=== PATIENT | female | born 1970 | race Caucasian/White ===

== ENCOUNTER 2024-08-02 08:41 | Outpatient (RCR) | payer BC, SELFPAY | END 2024-08-02 23:59 | disposition home or self-care (01) | LOC: ROT 08:41 | PROVIDERS: ATTENDING PHYSICIAN Orthopaedic Surgery; FAMILY PHYSICIAN Family Medicine | DX: M77.11 Lateral epicondylitis, right elbow (principal); Z73.6 Limitation of activities due to disability | CPT/HCPCS: 97010; 97166; 97535 ==

== ENCOUNTER → 2024-09-02 14:29 | Outpatient (REF) | payer BC, SELFPAY | LOC: HWRAD 14:29 | PROVIDERS: ATTENDING PHYSICIAN Student in an Organized Health Care Education/Training Program; FAMILY PHYSICIAN Family Medicine | DX: M25.50 Pain in unspecified joint (principal) | CPT/HCPCS: 72202; 73120; 73630 ==

== ENCOUNTER → 2024-11-15 15:05 | Outpatient (REF) | payer BC, SELFPAY | LOC: WDC 15:05 | PROVIDERS: ATTENDING PHYSICIAN Family Medicine; FAMILY PHYSICIAN Obstetrics & Gynecology | DX: Z12.31 Encounter for screening mammogram for malignant neoplasm of breast (principal); Z12.39 Encounter for other screening for malignant neoplasm of breast | CPT/HCPCS: 77063; 77067 ==

== ENCOUNTER 2024-11-24 15:05 | Inpatient (IN) | payer BC, SELFPAY ==
[2024-11-24] VITALS (12 sets, daily range): BP systolic 92–169; BP diastolic 61–103; BMI 40.9; BMI 38.5
[2024-11-24 06:10] LABS: % Basophils 0.5 % (0-2); % Eosinophils 1.3 % (0-6); % Immature Granulocytes 0.5 % (0-0.5); % Lymphocytes 12.7 % (20.5-51.1); % Monocytes 6.5 % (1.7-9.3); % Neutrophils 78.5 % (42.2-75.2); Absolute Eosinophils 0.1 10^3/uL (0-0.7); Absolute Lymphocytes 1.1 10^3/uL (1.2-3.4); Absolute Monocytes 0.6 10^3/uL (0.1-0.6); Absolute Neutrophils 6.9 10^3/uL (1.4-6.5); Hematocrit 41.6 % (37.0-47.0); Mean Corp Hgb Conc. 33.7 g/dL (33.0-37.0); Mean Corpuscular Hgb 32.6 pg (27.0-31.0); Mean Platelet Volume 9.4 fL (7.4-10.4); Nucleated Red Blood Cells % 0 %; Platelet Count 214 10^3/uL (130-400); Red Blood Cell Count 4.29 10^6/uL (4.20-5.40); Red Cell Dist. Width 13.1 % (11.5-14.5); White Blood Cell Count 8.8 10^3/uL (4.8-10.8)
[2024-11-24] MEDS: ZOFRAN 4 MG IV (06:22)
[2024-11-24] MEDS: BENTYL 20 MG IM (06:22)
[2024-11-24 06:23] LABS: ALT (SGPT) 177 U/L (0-35); AST (SGOT) 45 U/L (14-36); Albumin 4.3 g/dl (3.5-5.0); Alkaline Phosphatase 195 U/L (38-126); Blood Urea Nitrogen 13 mg/dl (7-17); Calcium 9.7 mg/dl (8.4-10.2); Carbon Dioxide 27 mmol/L (22-30); Chloride 107 mmol/L (98-107); Estimated Creatinine Clearance 120 ml/min; Glucose 165 mg/dl (70-99); Lipase 36 U/L (23-300); Potassium 4.7 mmol/L (3.5-5.1); Sodium 141 mmol/L (135-145); Total Bilirubin 0.9 mg/dl (0.2-1.3); Total Protein 6.8 g/dl (6.3-8.2); eGFR > 60.00
[2024-11-24] MEDS: OMNIPAQUE 50 ML PO (06:23)
--- NOTE | 2024-11-24 06:30 | ED.GENMED ---
History of Present Illness
General
Chief Complaint: Abdominal Pain
Source: patient
Exam Limitations: none
Time Seen by Provider: 11/24/24 06:08
Nursing documentation reviewed up to this point in time: agreed with
History of Present Illness
History of Present Illness:
54-year-old female past medical history of IBS, GERD presenting to the emergency department today with concerns of severe upper abdominal pain that woke her out of her sleep roughly 5 hours ago. Otherwise with a sleep without symptoms last night.
She has had associated nausea no vomiting no changes in bowel movements. Denies similar symptoms in the past. Does have a history of a gastric bypass more than 10 years ago.
Past History
Past History
ED Past Medical History: None
ED Past Surgical History: None
Social History
Tobacco: Non-smoker
Personal:
Living: with family
Review of Systems
Review of Systems
Allergies reviewed?: Yes
All Other Systems: ROS reviewed and negative except as documented in HPI and ROS
Phy Exam
Physical Exam
Physical Exam:
GENERAL: Alert , in no apparent distress
EYE: pupils equal and reactive
NECK: Supple, no significant adenopathy.
ENT: o/p clr, mmm.
CARDIAC: Regular rate and rhythm .
LUNGS: Clear breath sounds bilaterally, no acute respiratory distress, no wheezes/rales/rhonchi
ABDOMEN: Diffuse abdominal pain to palpation. No specific focal pain but does seem to have some increased discomfort to the upper abdomen. Mildly distended
NEUROLOGICAL: Alert and oriented, no focal neuro deficits
SKIN: Warm and dry, skin intact.
MUSCULOSKELETAL: No edema, well perfused.
PSYCH: Normal and appropriate interaction.
Course
Orders/Labs/Results
Orders:
Orders
11/24/24 05:43
Electrocardiogram (*1) Urgent
Reason for Study: Abdominal Pain
11/24/24 05:44
EKG- Treatment ONCE
11/24/24 05:51
Complete Blood Count/With Diff Urgent
Comprehensive Metabolic Panel Urgent
Lipase Urgent
11/24/24 06:17
CT Abd/pel W Iv And Oral Contr Urgent
Comment:
Reason For Exam: hx gastric bypass upper diffuse abd pain
Dicyclomine HCl [Bentyl] 20 mg IM NOW STA
Iohexol [Omnipaque] See Protocol PO NOW STA
Ondansetron Injectable [Zofran] 4 mg IV NOW STA
11/24/24 06:18
Urinalysis Reflex To Culture Urgent
11/24/24 07:14
Morphine Sulfate 4 mg .ROUTE .STK-MED ONE
11/24/24 07:15
HYDROmorphone [Dilaudid] 0.5 mg IV NOW STA
11/24/24 09:45
Ketorolac [Toradol] 15 mg .ROUTE .STK-MED ONE
Ketorolac [Toradol] 15 mg IV NOW STA
11/24/24 11:42
0.9% Sodium Chloride 1000 ml [Nss] 1,000 ml IV BOLUS
Abnormal Lab Results
11/24/24
05:51
MCH 32.6 H pg
(27.0-31.0)
Absolute Neuts (auto) 6.9 H 10^3/uL
(1.4-6.5)
Absolute Lymphs (auto) 1.1 L 10^3/uL
(1.2-3.4)
Neutrophils % 78.5 H %
(42.2-75.2)
Lymphocytes % 12.7 L %
(20.5-51.1)
Glucose 165 H mg/dl
(70-99)
AST 45 H U/L
(14-36)
ALT 177 H U/L
(0-35)
Alkaline Phosphatase 195 H U/L
(38-126)
11/24/24 05:51
11/24/24 05:51
Vital Signs
Initial and Last Documented VS:
Initial Vital Signs
BP
127/81
11/24/24 05:43
Last Documented Vital Signs
Temp Pulse Resp BP Pulse Ox
98.4 F 77 16 169/103 96
11/24/24 05:44 11/24/24 11:25 11/24/24 11:25 11/24/24 11:25 11/24/24 11:25
MDM/Problems Addressed
MDM/Problems Addressed:
54-year-old female presenting to the emergency department today with concerns of diffuse abdominal pain that woke her from her sleep 5 hours prior to arrival. Ongoing pain that is worsening. Associated nausea no vomiting. No fevers no chest pain
or shortness of breath. Patient was given initial dose of Bentyl and Zofran still having ongoing pain was given dose of Dilaudid. Slight improvement with this. Otherwise CT scan performed that showed possible early bowel obstruction versus ileus.
Patient admitted to medicine general surgery notified.
*Critical Care Note
Total Time (30-74mins, 75-104mins- exclusive of procedures): Not Applicable
ED Attending Note
-
Portions of this chart may have been created with voice recognition software.� Occasional wrong word or��sound alike� substitutions may have occurred due to the inherent limitations of voice recognition software.
Discharge Plan
Departure
Patient Disposition: Admit
Date of Disposition: 11/24/24
Time of Disposition: 12:18
Admit to: Med/Surg
Admit to doctor: Evert
Presentation/result/management discussed w/ accepting MD/DO: Hospitalist
Patient with high blood pressure during this ER visit?: No
Condition: Good
Covid-19: Not Applicable
Discharge Problem:
Bowel obstruction
Prescriptions:
No Action
esomeprazole magnesium [Nexium] 40 MG capsule,delayed release(DR/EC)
20 mg PO BID
Effexor
150 mg PO BID
cetirizine 10 MG tablet
10 mg PO DAILY
BuSPAR
20 mg PO TID
Patient Comments:
unknown dosage
furosemide 40 MG tablet
40 mg PO DAILY
Patient Comments:
*Alternates every other day with 20mg TABLETS.
dextroamphetamine-amphetamine [Adderall] 30 MG tablet
30 mg PO DAILY
bupropion HCl 100 MG tablet
100 mg PO DAILY
dicyclomine 20 MG tablet
20 mg PO BID
furosemide 20 MG tablet
20 mg PO DAILY
Patient Comments:
*Alternates every other day with 40mg TABLETS.
dextroamphetamine-amphetamine [Adderall] 5 MG tablet
25 mg PO HS
cholecalciferol (vitamin D3) 50,000 UNIT capsule
50,000 unit PO DAILY
Patient Comments:
*Every other day!
acetaminophen 325 MG tablet
650 mg PO Q4HPRN PRN (Reason: mild pain/SPANN/temp> 100.4F) Qty: 0 0RF
docusate sodium 100 MG capsule
100 mg PO BIDPRN PRN (Reason: constipation) Qty: 0 0RF
ergocalciferol (vitamin D2) 50,000 UNITS capsule
50,000 units PO DAILY Qty: 0 0RF
cefuroxime axetil 500 MG tablet
500 mg PO BID Qty: 4 0RF
L.acid,para-B.bifidum-S.therm [RisaQuad] 1 CAP capsule
1 cap PO BID Qty: 0 0RF
Referrals:
UNKNOWN - PT DOES,NOT KNOW [Family Provider] -
Interventions
Interventions:
*Risk Screen - Suicide Last Done: 11/24/24 05:44
*General Assessment Last Done: 11/24/24 05:44
*Neglect/Abuse Screening Last Done: 11/24/24 05:44
*ED- Fall Risk Assessment Last Done: 11/24/24 05:44
*ED COVID-19 Vaccine History Last Done: 11/24/24 05:44
PJ-Vycyog-Hhjymojtdy Assessment Last Done: 11/24/24 07:09
Discharge Date and Time
Print Language: FAROESE
[2024-11-24] MEDS: DILAUDID 0.5 MG IV (07:22)
[2024-11-24] MEDS: TORADOL 15 MG IV (09:50)
[2024-11-24] MEDS: NSS 1000 IV ×2 (11:46→16:05)
--- NOTE | 2024-11-24 14:31 | HPS.HSE ---
Family Physician
-
Family Physician: NOT KNOW UNKNOWN - PT DOES
Chief Complaint
-
Abdominal pain
History of Present Illness
54 visual female with history of multiple abdominal surgeries who presents with rather sudden of abdominal pain waking patient up from sleep. Pain was associated with nausea without emesis. Patient reports no changes in bowel habits over the last
few days. Patient reports no bulky food intake or recent travel, sick contacts. Patient multiple gastric surgeries including Janel-en-Y gastric bypass in 2002 following small bowel resection, hernia repair with mesh, hysterectomy, cholecystectomy,
appendectomy. She reports no prior episodes similar to 1 that she presents with today.
Medical History
Past Medical History
Past Medical History: Reports Other
Additional Past Medical History:
Insomnia, IBS
Past Surgical History: Reports Other (Gastric bypass Janel-en-Y, appendectomy, cholecystectomy, hysterectomy, abdominal hernia repair, small bowel resection)
Social History
Tobacco: Non-smoker
Drug: None
Personal:
Living: With Family
Employment: Employed
Family History
Family History: Not pertinent
Allergies / Home Medications
Allergies reflects when Allergies were last updated in [facility].
Home Medications with original date entered in [facility]
Allergy/Medication List:
Allergies
Allergy/AdvReac Type Severity Reaction Status Date / Time
morphine [Morphine] Allergy Unknown Verified 11/24/24 08:20
piperacillin sodium Allergy Possible Verified 11/24/24 08:20
[From Zosyn] flushing
reaction
to Zosyn
per ID
note.
tazobactam sodium Allergy Possible Verified 11/24/24 08:20
[From Zosyn] flushing
reaction
to Zosyn
per ID
note.
seasonal Allergy Unknown Uncoded 11/24/24 05:54
Home Medications
buspirone 10 mg tablet 30 mg PO BID ##0 05/10/09
cetirizine 10 mg tablet 10 mg PO HS 05/10/09
dextroamphetamine-amphetamine 30 mg tablet (Adderall) 30 mg PO DAILY 06/16/16
dicyclomine 20 mg tablet 20 mg PO BID 06/16/16
acetaminophen 325 mg tablet 650 mg (2 x 325 mg) PO Q4HPRN PRN mild pain/SPANN/temp> 100.4F ##0 06/20/16
bupropion HCl 100 mg tablet,12 hr sustained-release 100 mg PO BID 11/24/24
buspirone 10 mg tablet 30 mg PO DAILYPRN PRN anxiety 11/24/24
dextroamphetamine-amphetamine 20 mg tablet (Adderall) 20 mg PO TID 11/24/24
dextroamphetamine-amphetamine ER 25 mg 24hr capsule,extend release 25 mg PO NOON 11/24/24
duloxetine 30 mg capsule,delayed release (Cymbalta) 30 mg PO BID 11/24/24
ergocalciferol (vitamin D2) 1,250 mcg (50,000 unit) capsule 50,000 units PO WEEKLY 11/24/24
esomeprazole magnesium 20 mg capsule,delayed release (Nexium) 20 mg PO BID 11/24/24
gabapentin 100 mg capsule 100 mg PO TID 11/24/24
turmeric 400 mg capsule 2,000 mg PO BID 11/24/24
Review of Systems
-
A 12 point ROS was completed and negative except as noted: Yes
Abdomen/GI: Reports See HPI
Physical Exam
Vital Signs
Vital Signs
Temp Pulse Resp BP Pulse Ox
98.4 F 77 16 149/91 93
11/24/24 05:44 11/24/24 11:25 11/24/24 11:25 11/24/24 12:46 11/24/24 13:00
Physical Exam
General: Well Developed, Well Nourished and No Apparent Distress
HEENT: NormoCephalic, Moist mucous membranes and Atraumatic
Respiratory: Clear
Cardiac: S1/S2 and Regular Rhythm; No Murmur or Rub
GI: Soft, Non Tender, Non Distended and Normal Bowel Sounds; No Organomegaly
Rectal: Deferred by Provider
Musculoskeletal: No Clubbing, No Cyanosis and No Edema
Skin: No Rash
Neuro: Nonfocal/grossly intact
Laboratory Results
-
11/24/24 05:51
11/24/24 05:51
Laboratory Results
Total Bilirubin 0.9 mg/dl (0.2-1.3) 11/24/24 05:51
AST 45 U/L (14-36) H 11/24/24 05:51
ALT 177 U/L (0-35) H 11/24/24 05:51
Alkaline Phosphatase 195 U/L (38-126) H 11/24/24 05:51
Lipase 36 U/L (23-300) 11/24/24 05:51
Impression/Plan
-
IMPRESSION:
SBO
History of multiple abdominal surgeries.
Other conditions:*
Insomnia.
Obesity with BMI of 39
PLAN:
CT scan of the abdomen pelvis with IV and oral contrast
IMPRESSION: Multiple distended loops of small bowel about 2 separate anastomotic sites concerning for developing obstruction. Ileus cannot be excluded. Limited evaluation without oral contrast. Large amount of fecal material in small bowel loops of
the mid and lower right abdomen. New.
Moderate colonic wall thickening probably due to limited distention. Colitis cannot be excluded. New.
Previous gastric bypass surgery. Stable
Cholecystectomy. Stable
Hepatomegaly. New
Too small to characterize hypodense splenic lesion likely a small cyst or hemangioma.
SBO.
History of multiple abdominal surgeries including Janel-en-Y gastric bypass in [address] scan as above.
Abdominal examination benign only with mild distention, although with hypoactive bowel sounds
No clinical or radiologic evidence of bowel ischemia
Reports improvement since arrival to the emergency room with IV fluid bolus and analgesia.
Discussed with surgery.
Strict n.p.o.
IV hydration
Follow-up clinically and radiologically
IV PPI and antiemetics
Hold dicyclomine
Repeat CBC/BMP in the morning
Insomnia
Neuropathy pain
Continue preadmission regimen including Adderall, BuSpar and Neurontin
DVT prophylaxis Lovenox
--- NOTE | 2024-11-24 14:36 | CON.GS ---
Consultation
-
Reason for Consultation: Abdominal pain, small bowel obstruction
Medical History
-
Chief Complaint: Abdominal pain
History of Present Illness:
Patient is a 54-year-old female who presents with the acute onset of abdominal pain.
Past abdominal surgical history significant for having undergone open Janel-en-Y gastric bypass procedure with cholecystectomy in 2002. She subsequently underwent a MARLENE/appendectomy. Developed an incisional hernia and had component separation
repair. Subsequent laparotomy which was initially planned for revision of her bypass but turned into a ex lap, lysis of adhesions and small bowel resection without revision of her gastrojejunostomy or jejunojejunostomy anastomosis. She developed
another hernia and underwent operative correction in 2017. This was her last abdominal surgery.
Patient reports a history of chronic intermittent abdominal distention, fullness and early satiety on a monthly basis or so which she is attributed to dietary intake. She has not been hospitalized with any diagnosis of small bowel obstruction or
other GI conditions since her last hernia surgery in 2016. She was recently feeling fairly well. Last night had rice and beans for dinner and felt similarly distended and bloated but without abdominal pain. She awoke at 1 AM with severe onset of
colicky generalized abdominal pain and nausea but no vomiting. Last bowel movement yesterday with normal formed stool. No melena or hematochezia. She has not been able to pass significant flatus no bowel movement overnight.
She has been able to get some relief from her abdominal pain after getting pain medicine in the emergency department. Still feels tensely distended.
Past Medical History
Past Medical History: Other (Anxiety/depression, chronic fatigue, GERD, IBS, seasonal allergies.)
Past Surgical History: Other (Abdominal surgical history as outlined in the HPI)
Social History
Tobacco: Non-Smoker
Personal:
Family History
Family History: Reviewed & Not Pertinent
Allergies / Home Medications
Allergy/AdvReac Type Severity Reaction Status Date / Time
morphine [Morphine] Allergy Unknown Verified 11/24/24 08:20
piperacillin sodium Allergy Possible Verified 11/24/24 08:20
[From Zosyn] flushing
reaction
to Zosyn
per ID
note.
tazobactam sodium Allergy Possible Verified 11/24/24 08:20
[From Zosyn] flushing
reaction
to Zosyn
per ID
note.
seasonal Allergy Unknown Uncoded 11/24/24 05:54
�Medication �Instructions �Recorded �Confirmed �Type
buspirone 10 mg tablet 30 mg PO BID ##0 05/10/09 11/24/24 History
cetirizine 10 mg tablet 10 mg PO HS 05/10/09 11/24/24 History
dextroamphetamine-amphetamine 30 30 mg PO DAILY 06/16/16 11/24/24 History
mg tablet (Adderall)
dicyclomine 20 mg tablet 20 mg PO BID 06/16/16 11/24/24 History
acetaminophen 325 mg tablet 650 mg (2 x 325 mg) PO Q4HPRN PRN 06/20/16 11/24/24 Rx
mild pain/SPANN/temp> 100.4F ##0
bupropion HCl 100 mg tablet,12 hr 100 mg PO BID 11/24/24 11/24/24 History
sustained-release
buspirone 10 mg tablet 30 mg PO DAILYPRN PRN anxiety 11/24/24 11/24/24 History
dextroamphetamine-amphetamine 20 20 mg PO TID 11/24/24 11/24/24 History
mg tablet (Adderall)
dextroamphetamine-amphetamine ER 25 mg PO NOON 11/24/24 11/24/24 History
25 mg 24hr capsule,extend release
duloxetine 30 mg capsule,delayed 30 mg PO BID 11/24/24 11/24/24 History
release (Cymbalta)
ergocalciferol (vitamin D2) 1,250 50,000 units PO WEEKLY 11/24/24 11/24/24 History
mcg (50,000 unit) capsule
esomeprazole magnesium 20 mg 20 mg PO BID 11/24/24 11/24/24 History
capsule,delayed release (Nexium)
gabapentin 100 mg capsule 100 mg PO TID 11/24/24 11/24/24 History
turmeric 400 mg capsule 2,000 mg PO BID 11/24/24 11/24/24 History
Review of Systems
-
A 10 point review of systems was completed, and was negative except as per HPI.
Physical Exam
Vital Signs
Temp Pulse Resp BP Pulse Ox
98.4 F 77 16 149/91 93
11/24/24 05:44 11/24/24 11:25 11/24/24 11:25 11/24/24 12:46 11/24/24 13:00
11/23/24 11/24/24 11/25/24
06:59 06:59 06:59
Actual Weight 101.4 kg
Body Mass Index (BMI) 40.9
Lab Results
11/24/24 05:51
11/24/24 05:51
WBC 8.8 10^3/uL (4.8-10.8) 11/24/24 05:51
Hgb 14.0 g/dL (12.0-16.0) 11/24/24 05:51
Hct 41.6 % (37.0-47.0) 11/24/24 05:51
Plt Count 214 10^3/uL (130-400) 11/24/24 05:51
Abs Immat Gran (auto) 0.0 10^3/uL (0-0.05) 11/24/24 05:51
Neutrophils % 78.5 % (42.2-75.2) H 11/24/24 05:51
Physical Exam
General: Well Developed, Well Nourished and Other (Currently comfortable and participatory for history taking but acutely ill appearing)
HEENT: Normocephalic, Anicteric and Moist Mucous Membranes
Respiratory: Non Labored Respirations
Cardiac: Regular Rhythm
GI: Soft, Tender (Tenderness palpation centrally and right hemiabdomen. No rebound, no rigidity, no guarding.) and Distended (Tympanitic. No tympany on percussion)
Skin: Warm
Neuro: AO x 3
Psych: Calm
Data Reviewed
-
CT Scan: Image Personally Visualized and interpreted, Report Reviewed by me, Discussed with Physician, Discussed with Patient, Discussed with Family and Other (CT abdomen/pelvis 11/24/2024 with IV and oral contrast. There is limited oral contrast
opacifying the gastric pouch and proximal jejunum just distal to the anastomosis. There appears to be a jejunojejunal anastomosis in the region of the right lower quadrant consistent with her history of a Janel-en-)
Labs: Labs Reviewed by me, Discussed with Patient and Discussed with Family
Assessment / Plan
-
Assessment: 54-year-old female with extensive past abdominal surgical history including open Janel-en-Y gastric bypass/cholecystectomy, component separation with hernia repair, MARLENE/appendectomy, ex lap small bowel resection, open repair recurrent
incisional hernia now presenting with probable adhesive related small bowel obstruction.
CT imaging personally reviewed as outlined above. No radiographic signs of immediate bowel threat/compromise such as closed-loop obstruction, internal hernia, pneumatosis, free fluid or bowel wall thickening.
Clinically stable and without peritonitis on examination. Relief with analgesics administered in the emergency department.
Plan: Given patient's extensive past abdominal surgical history and clinical stability without signs of immediate bowel compromise or threat recommended initial attempt at medical management.
N.p.o.
IV fluid hydration
No role for NG tube decompression as she has had a Janel-en-Y gastric bypass.
Analgesics and antiemetics as needed
Repeat abdominal x-ray tomorrow to monitor for bowel gas pattern and potential progression of limited ingested oral contrast.
Discussed with hospitalist
Reviewed with patient and her boyfriend/significant other at bedside. Any other concerns or questions were confirmed to be fully addressed.
--- NOTE | 2024-11-24 16:28 | PTCARENOTE ---
Arrived to unit and ambulated to room. Call abebe within reach. Oriented to room.
--- NOTE | 2024-11-24 16:44 | CM ---
Met patient in ER. She lives in 2 level home with 18 steps up to bedroom and bathrooms. Her sons live at home when not away at college.
Her brother lives in [place].
She works, drives. NO DME, VNA, SNF.
Pharmacy [facility].
Dr. Le PCP
admitted with SBO.
PLAN HOMe no needs.
[2024-11-24] MEDS: NEURONTIN 100 MG PO ×2 (17:00→21:52)
[2024-11-24] MEDS: ADDERALL 20 MG PO (17:00)
[2024-11-24] MEDS: PROTONIX IV 40 MG IV (17:01)
[2024-11-24] MEDS: NSS (PRESERVATIVE FREE) 10 ML IV (17:01)
[2024-11-24] MEDS: LOVENOX 40 MG SC (17:45)
[2024-11-24] MEDS: CYMBALTA DELAYED RELEASE 30 MG PO (20:13)
[2024-11-24] MEDS: WELLBUTRIN SR (12 hour sustained release) 100 MG PO (20:14)
[2024-11-24] MEDS: OFIRMEV 100 IV (20:14)
[2024-11-24] MEDS: BUSPAR 30 MG PO (20:14)
[2024-11-24] MEDS: ZYRTEC 10 MG PO (22:20)
[2024-11-25] MEDS: NSS 1000 IV ×3 (02:58→22:17)
[2024-11-25 06:20] LABS: % Basophils 0.4 % (0-2); % Eosinophils 3.1 % (0-6); % Immature Granulocytes 0.2 % (0-0.5); % Lymphocytes 37.8 % (20.5-51.1); % Monocytes 12.1 % (1.7-9.3); % Neutrophils 46.4 % (42.2-75.2); Absolute Eosinophils 0.1 10^3/uL (0-0.7); Absolute Lymphocytes 1.7 10^3/uL (1.2-3.4); Absolute Monocytes 0.6 10^3/uL (0.1-0.6); Absolute Neutrophils 2.1 10^3/uL (1.4-6.5); Hematocrit 36.1 % (37.0-47.0); Hemoglobin 12.1 g/dL (12.0-16.0); Mean Corp Hgb Conc. 33.5 g/dL (33.0-37.0); Mean Corpuscular Hgb 32.4 pg (27.0-31.0); Mean Corpuscular Volume 96.8 fL (81.0-99.0); Mean Platelet Volume 9.5 fL (7.4-10.4); Nucleated Red Blood Cells % 0 %; Platelet Count 181 10^3/uL (130-400); Red Blood Cell Count 3.73 10^6/uL (4.20-5.40); Red Cell Dist. Width 13.2 % (11.5-14.5); White Blood Cell Count 4.6 10^3/uL (4.8-10.8)
[2024-11-25 06:42] LABS: Blood Urea Nitrogen 13 mg/dl (7-17); Calcium 8.4 mg/dl (8.4-10.2); Carbon Dioxide 27 mmol/L (22-30); Chloride 111 mmol/L (98-107); Estimated Creatinine Clearance 119 ml/min; Glucose 97 mg/dl (70-99); Potassium 4.1 mmol/L (3.5-5.1); Sodium 141 mmol/L (135-145); eGFR > 60.00
[2024-11-25 07:35] VITALS: BP 133/71
[2024-11-25 07:55] LABS: Urine Albumin Negative (Neg - Trace); Urine Bilirubin Negative (Negative); Urine Character Clear (Clear); Urine Color Yellow; Urine Glucose Negative (Negative); Urine Ketone Negative (Negative); Urine Leukocyte 1+ (Negative); Urine Nitrite Negative (Negative); Urine Occult Blood Negative (Negative); Urine Specific Gravity 1.015 (<1.030); Urine Urobilinogen Negative (Neg - 1+)
[2024-11-25] MEDS: NEURONTIN 100 MG PO ×3 (08:28→22:17)
[2024-11-25] MEDS: ADDERALL 30 MG PO (08:28)
[2024-11-25] MEDS: NSS (PRESERVATIVE FREE) 10 ML IV (08:28)
[2024-11-25] MEDS: WELLBUTRIN SR (12 hour sustained release) 100 MG PO ×2 (08:28→20:21)
[2024-11-25] MEDS: BUSPAR 30 MG PO ×2 (08:28→20:21)
[2024-11-25] MEDS: CYMBALTA DELAYED RELEASE 30 MG PO ×2 (08:28→20:21)
[2024-11-25] MEDS: PROTONIX IV 40 MG IV (08:29)
[2024-11-25 08:34] LABS: Urine Amorphous Seen; Urine Squamous Cell >30 /LPF (Few)
[2024-11-25 08:35] LABS: Urine Red Blood Cell 0-2 /HPF (0-2)
[2024-11-25] MEDS: OFIRMEV 100 IV (09:34)
[2024-11-25] MEDS: ADDERALL 20 MG PO ×3 (10:23→18:02)
[2024-11-25] MEDS: TORADOL 15 MG IV ×2 (10:48→20:20)
--- NOTE | 2024-11-25 11:18 | W.PN.GS2 ---
Addendum entered and electronically signed by Bro Chamberlain MD 11/25/24 11:47:
I saw and examined the patient.
The Electrician's note was reviewed and I agree with the note.
Comment: Improved, nausea better, passing flatus and had a BM, pain also resolving. Belly soft, mild ttp to left todd abdomen. OK to trial cld. Plan to go slow with diet advancement
Original Note:
Today's Communication / Plan
-
Trial of clears
Assessment / Plan
-
54-year-old female with extensive past abdominal surgical history including open Janel-en-Y gastric bypass/cholecystectomy, component separation with hernia repair, MARLENE/appendectomy, ex lap small bowel resection, open repair recurrent incisional
hernia now presenting with probable adhesive related partial small bowel obstruction.
AFVSS
No leukocytosis
Passing flatus/BM, still with left sided pain/distention
Plan:
Continue to follow for improvement with medical management
Trial of clears
IV fluid hydration
XR in AM if pain persists
Analgesics and antiemetics as needed
Subjective Data
-
Date of Service: November 25, 2024
Patient seen and examined at bedside with Dr. Chamberlain. Denies n/v. Tolerating sips of clears. Passing some gas and had a BM. Some pain remains to the left abdomen.
Objective Data
-
Intake and Output
11/24/24 11/25/24 11/26/24
06:59 06:59 06:59
Intake Total 1540 / 1540
Output Total 600 / 600
Balance 940 / 940
Intake:
Oral fluids 240 / 240
IV fluids (Total) 1200 / 1200
IV piggybacks 100 / 100
Output:
Urine, Voided 600 / 600
Other:
Number of approximated SMALL 1
amounts of urine
Number of approximated MODERATE 2
amounts of urine
Vital Signs
Temp Pulse Resp BP Pulse Ox
98.3 F 73 18 133/71 99
11/25/24 07:35 11/25/24 07:35 11/25/24 07:35 11/25/24 07:35 11/25/24 07:35
Lab Results
11/25/24 05:54
11/25/24 05:54
Calcium 8.4 mg/dl (8.4-10.2) 11/25/24 05:54
Total Bilirubin 0.9 mg/dl (0.2-1.3) 11/24/24 05:51
AST 45 U/L (14-36) H 11/24/24 05:51
ALT 177 U/L (0-35) H 11/24/24 05:51
Alkaline Phosphatase 195 U/L (38-126) H 11/24/24 05:51
Total Protein 6.8 g/dl (6.3-8.2) 11/24/24 05:51
Albumin 4.3 g/dl (3.5-5.0) 11/24/24 05:51
Physical Exam
-
NAD
ABD soft, tender to the left hemiabdomen, mild distention
--- NOTE | 2024-11-25 14:33 | W.PN.HOSP.TC ---
Today's Communication/Plan
-
Clear liquid diet
Assessment / Plan
Assessment / Plan
IMPRESSION:
SBO
History of multiple abdominal surgeries.
Other conditions:*
Insomnia.
Obesity with BMI of 39
PLAN:
CT scan of the abdomen pelvis with IV and oral contrast
IMPRESSION: Multiple distended loops of small bowel about 2 separate anastomotic sites concerning for developing obstruction. Ileus cannot be excluded. Limited evaluation without oral contrast. Large amount of fecal material in small bowel loops of
the mid and lower right abdomen. New.
Moderate colonic wall thickening probably due to limited distention. Colitis cannot be excluded. New.
Previous gastric bypass surgery. Stable
Cholecystectomy. Stable
Hepatomegaly. New
Too small to characterize hypodense splenic lesion likely a small cyst or hemangioma.
SBO.
History of multiple abdominal surgeries including Janel-en-Y gastric bypass in [address] scan as above.
Abdominal examination benign only with mild distention, although with hypoactive bowel sounds
No clinical or radiologic evidence of bowel ischemia
Reports improvement since arrival to the emergency room with IV fluid bolus and analgesia.
Discussed with surgery.
Noted some improvement with decrease of abdominal distention resolution of nausea and small BM
Clear liquid diet today
Wean off IV fluids if sufficient liquid intake
Follow-up clinically
IV PPI and antiemetics
Hold dicyclomine
Insomnia
Neuropathy
Continue preadmission regimen including Adderall, BuSpar and Neurontin
DVT prophylaxis Lovenox
Anticipated Discharge: 24 - 48 hours
Subjective/Interval History
-
Date of Service: November 25, 2024
Objective Data
-
Labs:
Laboratory Results
11/25/24
05:54
WBC 4.6 L
Hgb 12.1
Hct 36.1 L
Plt Count 181
Sodium 141
Potassium 4.1
Chloride 111 H
Carbon Dioxide 27
BUN 13
Creatinine 0.5 L
Glucose 97
Calcium 8.4
Vital Signs:
Vital Signs
Temp Pulse Resp BP Pulse Ox
98.3 F 73 18 133/71 99
11/25/24 07:35 11/25/24 07:35 11/25/24 07:35 11/25/24 07:35 11/25/24 07:35
I&O
11/24/24 11/25/24 11/26/24
06:59 06:59 06:59
Intake Total 1540 / 1540 720 / 720
Output Total 600 / 600
Balance 940 / 940 720 / 720
Physical Exam
-
General: Well Developed and No Apparent Distress
HEENT: Normocephalic, Atraumatic and Moist Mucous Membranes
Respiratory: Clear to Auscultation
Cardiac: Regular Rhythm and S1/S2; Negative Murmur, Rub or Gallop
GI: Soft, Nontender, Nondistended and Normal Bowel Sounds (Hypoactive bowel sounds); Negative Organomegaly
Rectal: Deferred by Provider
Musculoskeletal: No Clubbing, No Cyanosis and No Edema
Skin: Negative Rash
Neuro: Nonfocal/Grossly Intact
[2024-11-25 15:52] VITALS: BP 125/68
--- NOTE | 2024-11-25 17:12 | CM ---
Met with pt at bedside she is not ready for dc today.
She declined need for VN at dc unless she has surgery.
Family will drive her home at dc.
PLAN Home no anticipated needs
[2024-11-25] MEDS: LOVENOX 40 MG SC (18:03)
[2024-11-25] MEDS: FLUSH (NSS) 1 FLUSH IV (20:22)
[2024-11-25] MEDS: ZYRTEC 10 MG PO (22:17)
[2024-11-25 23:42] VITALS: BP 111/68
[2024-11-26 06:42] LABS: Blood Urea Nitrogen 6 mg/dl (7-17); Calcium 8.7 mg/dl (8.4-10.2); Carbon Dioxide 33 mmol/L (22-30); Chloride 109 mmol/L (98-107); Estimated Creatinine Clearance 119 ml/min; Glucose 91 mg/dl (70-99); Potassium 4.2 mmol/L (3.5-5.1); Sodium 143 mmol/L (135-145); eGFR > 60.00
[2024-11-26 07:25] VITALS: BP 138/74
[2024-11-26] MEDS: WELLBUTRIN SR (12 hour sustained release) 100 MG PO ×2 (08:05→20:23)
[2024-11-26] MEDS: NEURONTIN 100 MG PO ×3 (08:05→21:29)
[2024-11-26] MEDS: ADDERALL 30 MG PO (08:05)
[2024-11-26] MEDS: CYMBALTA DELAYED RELEASE 30 MG PO ×2 (08:05→20:22)
[2024-11-26] MEDS: BUSPAR 30 MG PO ×2 (08:05→20:23)
[2024-11-26] MEDS: NSS (PRESERVATIVE FREE) 10 ML IV (08:06)
[2024-11-26] MEDS: PROTONIX IV 40 MG IV (08:06)
[2024-11-26] MEDS: NSS 1000 IV (10:06)
[2024-11-26] MEDS: ADDERALL 20 MG PO ×2 (10:21→13:54)
--- NOTE | 2024-11-26 14:24 | W.PN.HOSP.TC ---
Today's Communication/Plan
-
Doing well, toleratd a diet.
Assessment / Plan
Assessment / Plan
IMPRESSION:
54 woman with SBO and a History of multiple abdominal surgeries.
Other relevant conditions:*
Insomnia.
Obesity with BMI of 39
Data:
CT scan of the abdomen pelvis with IV and oral contrast
IMPRESSION:
Multiple distended loops of small bowel about 2 separate anastomotic sites concerning for developing obstruction.
Ileus cannot be excluded. Limited evaluation without oral contrast.
Large amount of fecal material in small bowel loops of the mid and lower right abdomen. New.
Moderate colonic wall thickening probably due to limited distention. Colitis cannot be excluded. New.
Previous gastric bypass surgery. Stable
Cholecystectomy. Stable
Hepatomegaly. New
Too small to characterize hypodense splenic lesion likely a small cyst or hemangioma.
1. SBO. - resolving
History of multiple abdominal surgeries including Janel-en-Y gastric bypass in 2002.
CT scan as above.
Abdominal examination benign only with mild distention, although with hypoactive bowel sounds
No clinical or radiologic evidence of bowel ischemia
Reports improvement since arrival to hospital.
Noted some improvement with decrease of abdominal distention resolution of nausea and small BM
Clear liquid diet then advance as tolerated
Wean off IV fluids if sufficient liquid intake
Follow-up clinically
IV PPI and antiemetics
Hold dicyclomine
2. Insomnia
3. Neuropathy
Continue preadmission regimen including Adderall, BuSpar and Neurontin
DVT prophylaxis Lovenox
Full code
Probable D/C in am, if doing well
Anticipated Discharge: 24 - 48 hours
Subjective/Interval History
-
Date of Service: November 26, 2024
tolerating a diet well.
Objective Data
-
Labs:
Laboratory Results
11/26/24
05:48
Sodium 143
Potassium 4.2
Chloride 109 H
Carbon Dioxide 33 H
BUN 6 L
Creatinine 0.6
Glucose 91
Calcium 8.7
Vital Signs:
Vital Signs
Temp Pulse Resp BP Pulse Ox
97.7 F 68 16 138/74 97
11/26/24 07:25 11/26/24 07:25 11/26/24 07:25 11/26/24 07:25 11/26/24 09:24
I&O
11/25/24 11/26/24 11/27/24
06:59 06:59 06:59
Intake Total 1540 / 1540 720 / 720 480 / 480
Output Total 600 / 600
Balance 940 / 940 720 / 720 480 / 480
Review of Systems
-
History Source: Patient
All other systems: Reviewed and negative
Physical Exam
-
General: Well Developed, Well Nourished, No Apparent Distress, Comfortable and Conversant
HEENT: Normocephalic, Atraumatic, Moist Mucous Membranes, Nose Appears Normal and Ears Appear Normal
Respiratory: Clear to Auscultation
Cardiac: Regular Rhythm and S1/S2
GI: Soft, Nontender and Nondistended
Musculoskeletal: No Clubbing, No Cyanosis and No Edema
Skin: Warm and Dry
Neuro: Awake, Alert, Oriented and AO x 3
Psych: Calm
Data Reviewed
-
Labs: Labs Reviewed by me
--- NOTE | 2024-11-26 14:51 | W.PN.GS2 ---
Addendum entered and electronically signed by Junior Rojas MD 11/26/24 15:48:
I saw and examined the patient.
The [employer]AR[employer]ERV[employer] CHIEF SCIENTIST's note was reviewed and I agree with the note.
Comment:
Seen in am with [employer] CHIEF SCIENTIST.
Less lower abdominal discomfort. Had BMs. Dis ok with clears.
AFVSS.
Abdomen mildy tender in upper quadants.
Trial fulls.
Continue other measures.
Original Note:
Today's Communication / Plan
-
fulls
Assessment / Plan
-
54-year-old female with extensive past abdominal surgical history including open Janel-en-Y gastric bypass/cholecystectomy, component separation with hernia repair, MARLENE/appendectomy, ex lap small bowel resection, open repair recurrent incisional
hernia now presenting with probable adhesive related partial small bowel obstruction.
AFVSS
No leukocytosis
Passing flatus/BM, still with left upper pain/distention
Plan:
Continues to improve with nonoperative management
Advance to fulls
Analgesics and antiemetics as needed
Subjective Data
-
Date of Service: November 26, 2024
Patient seen and examined at bedside with Dr. Rojas. Denies n/v. Tolerating liquids. Passing flatus/stools. Stools have been solid and liquid alternating. Relief of distention in lower abdomen but persists in the upper abdomen where she is still
occasionally having pain.
Objective Data
-
Intake and Output
11/25/24 11/26/24 11/27/24
06:59 06:59 06:59
Intake Total 1540 / 1540 720 / 720 480 / 480
Output Total 600 / 600
Balance 940 / 940 720 / 720 480 / 480
Intake:
Oral fluids 240 / 240 720 / 720 480 / 480
IV fluids (Total) 1200 / 1200
IV piggybacks 100 / 100
Output:
Urine, Voided 600 / 600
Other:
Number of approximated SMALL 1
amounts of urine
Number of approximated MODERATE 2 3
amounts of urine
Vital Signs
Temp Pulse Resp BP Pulse Ox
97.7 F 68 16 138/74 97
11/26/24 07:25 11/26/24 07:25 11/26/24 07:25 11/26/24 07:25 11/26/24 09:24
Lab Results
11/25/24 05:54
11/26/24 05:48
Calcium 8.7 mg/dl (8.4-10.2) 11/26/24 05:48
Total Bilirubin 0.9 mg/dl (0.2-1.3) 11/24/24 05:51
AST 45 U/L (14-36) H 11/24/24 05:51
ALT 177 U/L (0-35) H 11/24/24 05:51
Alkaline Phosphatase 195 U/L (38-126) H 11/24/24 05:51
Total Protein 6.8 g/dl (6.3-8.2) 11/24/24 05:51
Albumin 4.3 g/dl (3.5-5.0) 11/24/24 05:51
Physical Exam
-
NAD
ABD soft, tender to the left hemiabdomen (improved), mild distention upper abdomen (improved)
[2024-11-26 15:25] VITALS: BP 117/71
[2024-11-26] MEDS: LOVENOX 40 MG SC (18:39)
[2024-11-26] MEDS: ADDERALL PO (18:41)
[2024-11-26] MEDS: ZYRTEC 10 MG PO (21:29)
[2024-11-26] MEDS: TORADOL 15 MG IV (21:31)
[2024-11-26 23:35] VITALS: BP 125/76
[2024-11-27 06:11] LABS: Hematocrit 34.9 % (37.0-47.0); Hemoglobin 11.6 g/dL (12.0-16.0); Mean Corp Hgb Conc. 33.2 g/dL (33.0-37.0); Mean Corpuscular Volume 96.1 fL (81.0-99.0); Mean Platelet Volume 10.2 fL (7.4-10.4); Platelet Count 173 10^3/uL (130-400); Red Blood Cell Count 3.63 10^6/uL (4.20-5.40); Red Cell Dist. Width 12.7 % (11.5-14.5); White Blood Cell Count 4.4 10^3/uL (4.8-10.8)
[2024-11-27 06:40] LABS: Blood Urea Nitrogen 5 mg/dl (7-17); Carbon Dioxide 31 mmol/L (22-30); Chloride 105 mmol/L (98-107); Estimated Creatinine Clearance 119 ml/min; Glucose 94 mg/dl (70-99); Potassium 4.1 mmol/L (3.5-5.1); Sodium 143 mmol/L (135-145); eGFR > 60.00
[2024-11-27 07:20] VITALS: BP 116/72
[2024-11-27 07:35] VITALS: BP 116/72
[2024-11-27] MEDS: NSS (PRESERVATIVE FREE) 10 ML IV (08:29)
[2024-11-27] MEDS: PROTONIX IV 40 MG IV (08:29)
[2024-11-27] MEDS: NEURONTIN 100 MG PO ×3 (08:30→21:14)
[2024-11-27] MEDS: BUSPAR 30 MG PO ×2 (08:30→21:15)
[2024-11-27] MEDS: ADDERALL 30 MG PO (08:30)
[2024-11-27] MEDS: WELLBUTRIN SR (12 hour sustained release) 100 MG PO ×2 (08:30→21:14)
[2024-11-27] MEDS: CYMBALTA DELAYED RELEASE 30 MG PO ×2 (08:30→21:14)
[2024-11-27] MEDS: ADDERALL 20 MG PO ×2 (10:25→14:42)
--- NOTE | 2024-11-27 11:36 | W.PN.HOSP.TC ---
Today's Communication/Plan
-
Tolerating a clear liquid diet. Wants to advance.
Assessment / Plan
Assessment / Plan
IMPRESSION:
54 woman with SBO and a History of multiple abdominal surgeries.
Other relevant conditions:*
Insomnia.
Obesity with BMI of 39
Data:
CT scan of the abdomen pelvis with IV and oral contrast
IMPRESSION:
Multiple distended loops of small bowel about 2 separate anastomotic sites concerning for developing obstruction.
Ileus cannot be excluded. Limited evaluation without oral contrast.
Large amount of fecal material in small bowel loops of the mid and lower right abdomen. New.
Moderate colonic wall thickening probably due to limited distention. Colitis cannot be excluded. New.
Previous gastric bypass surgery. Stable
Cholecystectomy. Stable
Hepatomegaly. New
Too small to characterize hypodense splenic lesion likely a small cyst or hemangioma.
1. SBO. - resolving
History of multiple abdominal surgeries including Janel-en-Y gastric bypass in [address] scan as above.
Abdominal examination benign only with mild distention, although with hypoactive bowel sounds
No clinical or radiologic evidence of bowel ischemia
Reports improvement since arrival to hospital.
Noted some improvement with decrease of abdominal distention resolution of nausea and small BM
Clear liquid diet then advance as tolerated - surgery to advance
Wean off IV fluids if sufficient liquid intake
Follow-up clinically
IV PPI and antiemetics
2. Insomnia
3. Neuropathy
Continue preadmission regimen including Adderall, BuSpar and Neurontin
DVT prophylaxis Lovenox
Full code
Probable D/C in am, if doing well
Anticipated Discharge: 24 - 48 hours
Subjective/Interval History
-
Date of Service: November 27, 2024
Feels well.
Objective Data
-
Labs:
Laboratory Results
11/27/24
04:38
WBC 4.4 L
Hgb 11.6 L
Hct 34.9 L
Plt Count 173
Sodium 143
Potassium 4.1
Chloride 105
Carbon Dioxide 31 H
BUN 5 L
Creatinine 0.5 L
Glucose 94
Calcium 9.0
Vital Signs:
Vital Signs
Temp Pulse Resp BP Pulse Ox
98.2 F 68 16 116/72 96
11/27/24 07:20 11/27/24 07:20 11/27/24 07:20 11/27/24 07:20 11/27/24 08:20
I&O
11/26/24 11/27/24 11/28/24
06:59 06:59 06:59
Intake Total 720 / 720 960 / 960
Balance 720 / 720 960 / 960
Review of Systems
-
History Source: Patient
All other systems: Reviewed and negative
Physical Exam
-
General: Well Developed, Well Nourished and No Apparent Distress
HEENT: Normocephalic, Nose Appears Normal and Ears Appear Normal
Respiratory: Clear to Auscultation
Cardiac: Regular Rhythm and S1/S2
GI: Soft, Nontender and Nondistended
Musculoskeletal: No Clubbing and No Cyanosis
Skin: Warm and Dry
Neuro: Awake, Alert and Oriented
Psych: Calm
Data Reviewed
-
Labs: Labs Reviewed by me
--- NOTE | 2024-11-27 15:26 | W.PN.GS2 ---
Addendum entered and electronically signed by Junior Rojas MD 11/27/24 16:21:
I saw and examined the patient.
The RECORD PRESSMAN's note was reviewed and I agree with the note.
Comment:
Seen earlier with RECORD PRESSMAN.
Mild abdominal discomfort. Tolerated fulls. Having flatus/BMs.
AFVSS.
Abdomen minimally tender.
Diet advanced.
Ok with discharge potentially tomorrow.
Original Note:
Today's Communication / Plan
-
Low residue diet
Assessment / Plan
-
54-year-old female with extensive past abdominal surgical history including open Janel-en-Y gastric bypass/cholecystectomy, component separation with hernia repair, MARLENE/appendectomy, ex lap small bowel resection, open repair recurrent incisional
hernia now presenting with probable adhesive related partial small bowel obstruction.
AFVSS
No leukocytosis
Passing flatus/BM, still with left upper pain/distention
Plan:
Continues to improve with nonoperative management
Advance to LRD
Analgesics and antiemetics as needed
Will be ready from surgical standpoint for d/c in the next 24 hours if continues to tolerate diet
Subjective Data
-
Date of Service: November 27, 2024
Patient seen and examined at bedside with Dr Rojas. Denies n/v. Tolerating low residue diet without increase in pain. Still feels a little sore to the left abdomen but improving day by day. Reports feeling full early, but did finish 100% of tray.
Passing flatus and stools.
Objective Data
-
Intake and Output
11/26/24 11/27/24 11/28/24
06:59 06:59 06:59
Intake Total 720 / 720 960 / 960
Balance 720 / 720 960 / 960
Intake:
Oral fluids 720 / 720 960 / 960
Other:
Number of approximated MODERATE 3 3
amounts of urine
Vital Signs
Temp Pulse Resp BP Pulse Ox
98.2 F 68 16 116/72 96
11/27/24 07:20 11/27/24 07:20 11/27/24 07:20 11/27/24 07:20 11/27/24 08:20
Lab Results
11/27/24 04:38
11/27/24 04:38
Calcium 9.0 mg/dl (8.4-10.2) 11/27/24 04:38
Total Bilirubin 0.9 mg/dl (0.2-1.3) 11/24/24 05:51
AST 45 U/L (14-36) H 11/24/24 05:51
ALT 177 U/L (0-35) H 11/24/24 05:51
Alkaline Phosphatase 195 U/L (38-126) H 11/24/24 05:51
Total Protein 6.8 g/dl (6.3-8.2) 11/24/24 05:51
Albumin 4.3 g/dl (3.5-5.0) 11/24/24 05:51
Physical Exam
-
NAD
ABD soft, tender to the left hemiabdomen (improved), ND
[2024-11-27 15:30] VITALS: BP 127/84
--- NOTE | 2024-11-27 15:31 | PTCARENOTE ---
Receive patient this am AAOx3. Pt tolerated full liquids. Diet advanced to low residue an patient tolerated well. Pt OOB ambulating in room with a steady gait independently. Offered no complaints. Made patient comfortable. Cont to assess patient
status.
[2024-11-27] MEDS: LOVENOX 40 MG SC (17:20)
[2024-11-27] MEDS: ADDERALL PO (17:32)
[2024-11-27] MEDS: ZYRTEC 10 MG PO (21:14)
[2024-11-27] MEDS: TORADOL 15 MG IV (21:18)
[2024-11-27 23:33] VITALS: BP 129/71
[2024-11-28 07:25] VITALS: BP 120/68
[2024-11-28] MEDS: BUSPAR 30 MG PO (08:19)
[2024-11-28] MEDS: WELLBUTRIN SR (12 hour sustained release) 100 MG PO (08:19)
[2024-11-28] MEDS: CYMBALTA DELAYED RELEASE 30 MG PO (08:19)
[2024-11-28] MEDS: NSS (PRESERVATIVE FREE) 10 ML IV (08:20)
[2024-11-28] MEDS: ADDERALL 30 MG PO (08:20)
[2024-11-28] MEDS: PROTONIX IV 40 MG IV (08:20)
[2024-11-28] MEDS: NEURONTIN 100 MG PO (08:20)
[2024-11-28] MEDS: ADDERALL 20 MG PO ×2 (10:35→14:30)
--- NOTE | 2024-11-28 10:51 | W.PN.GS2 ---
Today's Communication / Plan
-
LRD
Assessment / Plan
-
54-year-old female with extensive past abdominal surgical history including open Janel-en-Y gastric bypass/cholecystectomy, component separation with hernia repair, MARLENE/appendectomy, ex lap small bowel resection, open repair recurrent incisional
hernia now presenting with probable adhesive related partial small bowel obstruction.
AFVSS
No leukocytosis
Passing flatus/BM, some residual discomfort to the left hemiaabdomen
XR today with resolved SBO
Plan:
Continues to improve with nonoperative management
Continue LRD
Analgesics and antiemetics as needed
OK for d/c from surgical standpoint
Subjective Data
-
Date of Service: November 28, 2024
Patient seen and examined at bedside with Dr. Barraza. Some residual tenderness to the left abdomen. Tolerating diet. Denies n/v. Passing stools/flatus.
Objective Data
-
Intake and Output
11/27/24 11/28/24 11/29/24
06:59 06:59 06:59
Intake Total 960 / 960 960 / 960
Balance 960 / 960 960 / 960
Intake:
Oral fluids 960 / 960 960 / 960
Other:
Number of approximated MODERATE 3 3
amounts of urine
Vital Signs
Temp Pulse Resp BP Pulse Ox
97.9 F 72 16 120/68 97
11/28/24 07:25 11/28/24 07:25 11/28/24 07:25 11/28/24 07:25 11/28/24 07:25
Lab Results
11/27/24 04:38
11/27/24 04:38
Calcium 9.0 mg/dl (8.4-10.2) 11/27/24 04:38
Total Bilirubin 0.9 mg/dl (0.2-1.3) 11/24/24 05:51
AST 45 U/L (14-36) H 11/24/24 05:51
ALT 177 U/L (0-35) H 11/24/24 05:51
Alkaline Phosphatase 195 U/L (38-126) H 11/24/24 05:51
Total Protein 6.8 g/dl (6.3-8.2) 11/24/24 05:51
Albumin 4.3 g/dl (3.5-5.0) 11/24/24 05:51
Physical Exam
-
NAD
ABD soft, tender to the left hemiabdomen (improved), ND
[2024-11-28] MEDS: TORADOL 15 MG IV (11:53)
--- NOTE | 2024-11-28 14:16 | W.DS.TRANS ---
DC Summary - [employer]
-
Discharge Instructions:
Discharge Diagnosis/Procedures Small bowel obstruction
Diet Low Fiber
Instructions: Low-fiber diet
Stand-Alone Forms:
Changes to Home Medications: No
Discharge Medications:
DC Medications w/original date entered in [facility]
buspirone 10 mg tablet 30 mg PO BID anxiety ##0 05/10/09
cetirizine 10 mg tablet 10 mg PO HS Allergies 05/10/09
dextroamphetamine-amphetamine 30 mg tablet (Adderall) 30 mg PO DAILY 06/16/16
dicyclomine 20 mg tablet 20 mg PO BID Gastrointestinal Issue 06/16/16
acetaminophen 325 mg tablet 650 mg (2 x 325 mg) PO Q4HPRN PRN mild pain/SPANN/temp> 100.4F ##0 06/20/16
bupropion HCl 100 mg tablet,12 hr sustained-release 100 mg PO BID 11/24/24
buspirone 10 mg tablet 30 mg PO DAILYPRN PRN anxiety 11/24/24
dextroamphetamine-amphetamine 20 mg tablet (Adderall) 20 mg PO TID 11/24/24
dextroamphetamine-amphetamine ER 25 mg 24hr capsule,extend release 25 mg PO NOON 11/24/24
duloxetine 30 mg capsule,delayed release (Cymbalta) 30 mg PO BID Mental Health/Anxiety 11/24/24
ergocalciferol (vitamin D2) 1,250 mcg (50,000 unit) capsule 50,000 units PO WEEKLY Supplement 11/24/24
esomeprazole magnesium 20 mg capsule,delayed release (Nexium) 20 mg PO BID Gastrointestinal Issue 11/24/24
gabapentin 100 mg capsule 100 mg PO TID Neuropathy pain 11/24/24
turmeric 400 mg capsule 2,000 mg PO BID Supplement 11/24/24
Home Medication Changes
Pending Results: No
[2024-11-28 15:00] VITALS: BP 133/76
--- NOTE | 2024-11-28 15:53 | CM ---
MD entered order for discharge.
Met with pt at bedside she said she is ready for dc today.
She declined need for VN at dc
Boyfriend will drive her home at dc.
PLAN Home no anticipated needs
--- NOTE | 2024-11-28 16:00 | PTCARENOTE ---
Received patient this am AAOx3. Pt OOB ambulating in room with a steady gait independently. Pt tolerated low residue diet. Complained of Headache. Medicated with Toradol IV with relief. Made patient comfortable. Cont to assess patient status. Pt
for discharge to home.
== END 2024-11-28 16:05 | disposition home or self-care (01) | DRG 390 ==
LOC: 4 EAST ACU 15:05
PROVIDERS: Emergency Medicine; Internal Medicine; Physician Assistant; ADMITTING PHYSICIAN Internal Medicine; CONSULT PHYSICIAN Surgery; EMERGENCY PHYSICIAN Emergency Medicine
DX: K56.609 Unspecified intestinal obstruction, unspecified as to partial versus complete obstruction (principal); Z90.49 Acquired absence of other specified parts of digestive tract; Z90.710 Acquired absence of both cervix and uterus; F41.9 Anxiety disorder, unspecified; F32.A Depression, unspecified; K58.9 Irritable bowel syndrome, unspecified; K21.9 Gastro-esophageal reflux disease without esophagitis; Z88.5 Allergy status to narcotic agent; G47.00 Insomnia, unspecified; Z68.39 Body mass index [BMI] 39.0-39.9, adult; E66.9 Obesity, unspecified; G62.9 Polyneuropathy, unspecified; D18.00 Hemangioma unspecified site; D73.89 Other diseases of spleen; R53.82 Chronic fatigue, unspecified; Z79.899 Other long term (current) drug therapy; Z98.84 Bariatric surgery status
CPT/HCPCS: 74018; 74177; 80048; 80053; 81003; 81015; 83690; 85025; 85027; 87086; 93005; 96372; 96374; 96375; 99285; Q9967

== ENCOUNTER → 2025-06-30 09:49 | Outpatient (REF) | payer BC, SELFPAY | LOC: HWRAD 09:49 | PROVIDERS: ATTENDING PHYSICIAN Family Medicine | DX: R74.8 Abnormal levels of other serum enzymes (principal) | CPT/HCPCS: 76700 ==